=== PATIENT | female | born 1940 | race Caucasian/White ===

== ENCOUNTER 2020-05-07 09:25 | Observation (INO) | payer OTHER ==
[~2020-05-07] VITALS: Ht 160 cm; Wt 59.1 kg
[2020-05-07 09:36] VITALS: BP 156/63
[2020-05-07 10:26] LABS: BASO # 0.1 10*3/uL (0.0-0.1); BASO % 0.9 % (0.0-1.0); EOS # 0.1 10*3/uL (0.0-0.4); EOS % 2.6 % (1.0-4.0); HEMATOCRIT 41.4 % (37.0-47.0); LYMPH # 0.9 10*3/uL (1.3-4.4); LYMPH % 17.4 % (27.0-41.0); MEAN CORPUSCULAR HGB 32.6 pg (27.0-31.0); MEAN CORPUSCULAR HGB CONC 30.4 g/dl (33.0-37.0); MONO # 0.5 10*3/uL (0.1-1.0); MONO % 8.6 % (3.0-9.0); NEUT # 3.8 10*3/uL (2.3-7.9); NEUT % 70.3 % (47.0-73.0); PLATELET COUNT AUTOMATED 262 10*3/uL (130-400); RED BLOOD COUNT 3.87 10*6/uL (4.10-5.10); RED CELL DISTRI WIDTH 16.2 % (0-14.5); WHITE BLOOD COUNT 5.4 10*3/uL (4.8-10.8)
[2020-05-07 10:40] LABS: ACT PARTIAL THROMBO TIME 26.2 SECONDS (20.0-32.1)
[2020-05-07 10:44] LABS: ALBUMIN 3.2 gm/dl (3.1-4.5); CREATININE 5.05 mg/dL (0.55-1.02); POTASSIUM 4.2 mmol/L (3.5-5.1); TOTAL PROTEIN 7.4 gm/dL (6.4-8.2)
[2020-05-07 12:00] VITALS: BP 151/64
--- NOTE | 2020-05-07 12:15 | NUR ---
Time:1214 A 80 year old FEMALE admitted to 5E under services of HAILEY RAMOS DO, Pt. arrived via stretcher from ER. Chief complaint: CONSTIPATION,RECTAL BLEED. CIRO SIMENTAL
[2020-05-07] MEDS ORDERED: COREG6.25 MG PO (13:02)
[2020-05-07] MEDS ORDERED: ELIQUIS5 M1 PO (13:02)
[2020-05-07] MEDS ORDERED: VITAMIN D350 MC1 PO (13:03)
[2020-05-07] MEDS ORDERED: ZETIA10 MG PO (13:03)
[2020-05-07] MEDS ORDERED: COQ-1030 MG PO (13:04)
--- NOTE | 2020-05-07 15:17 | NUR ---
DR. PARKER AWARE OF CONSULT AND DR. RAYO ANSWERING SERVICE TOOK INFO.
[2020-05-07 16:00] VITALS: BP 148/58
[2020-05-07 17:37] LABS: HEMATOCRIT 42.4 % (37.0-47.0); MEAN CELL VOLUME 108.4 fl (81.0-99.0); MEAN CORPUSCULAR HGB CONC 30.4 g/dl (33.0-37.0); MEAN PLATELET VOLUME 9.3 fl (9.6-12.3); PLATELET COUNT AUTOMATED 237 10*3/uL (130-400); RED BLOOD COUNT 3.91 10*6/uL (4.10-5.10); RED CELL DISTRI WIDTH 16.3 % (0-14.5); WHITE BLOOD COUNT 8.5 10*3/uL (4.8-10.8)
[2020-05-07 17:54] LABS: TOTAL CELLS COUNTED 100 #CELLS
[2020-05-07 17:55] LABS: OVALOCYTES FEW; PLATELET SUFFICIENCY NORMAL (NORMAL); POLYCHROMASIA SLIGHT
[2020-05-07 20:00] VITALS: BP 157/53
--- NOTE | 2020-05-07 20:00 | NUR ---
Patient resting quietly with no c/o discomfort. Respirations easy and regular. Vital signs stable. No overt distress. CLARISA PALUMBO
[2020-05-08] VITALS: BP 122/44
--- NOTE | 2020-05-08 | NUR ---
Patient resting quietly with no c/o discomfort. Respirations easy and regular. Vital signs stable. No overt distress. CLARISA PALUMBO
--- NOTE | 2020-05-08 02:51 | NUR ---
ENTIRE/24 HR chart check completed.
--- NOTE | 2020-05-08 04:00 | NUR ---
Patient resting quietly with no c/o discomfort. Respirations easy and regular. Vital signs stable. No overt distress. CLARISA PALUMBO
--- NOTE | 2020-05-08 06:00 | NUR ---
DR DACOSTA NOTIFIED THAT PT NEEDS D/C'S MISAEL TO ATTEND DIALYSIS. WEED CUTTER CALLED IN TO CHECK ON PT'S CONDITION AND REASON FOR ADM.
[2020-05-08 06:47] LABS: BASO % 0.5 % (0.0-1.0); EOS # 0.1 10*3/uL (0.0-0.4); HEMATOCRIT 38.4 % (37.0-47.0); LYMPH # 1.2 10*3/uL (1.3-4.4); LYMPH % 21.7 % (27.0-41.0); MEAN CELL VOLUME 105.5 fl (81.0-99.0); MEAN CORPUSCULAR HGB 33.2 pg (27.0-31.0); MEAN CORPUSCULAR HGB CONC 31.5 g/dl (33.0-37.0); MEAN PLATELET VOLUME 9.4 fl (9.6-12.3); MONO # 0.7 10*3/uL (0.1-1.0); NEUT # 3.5 10*3/uL (2.3-7.9); NEUT % 63.4 % (47.0-73.0); PLATELET COUNT AUTOMATED 266 10*3/uL (130-400); RED BLOOD COUNT 3.64 10*6/uL (4.10-5.10); RED CELL DISTRI WIDTH 16.3 % (0-14.5); WHITE BLOOD COUNT 5.6 10*3/uL (4.8-10.8)
[2020-05-08 06:51] LABS: ALBUMIN 2.9 gm/dl (3.1-4.5); CREATININE 5.56 mg/dL (0.55-1.02); POTASSIUM 4.3 mmol/L (3.5-5.1); TOTAL PROTEIN 6.6 gm/dL (6.4-8.2)
[2020-05-08 06:58] LABS: THYROID STIM HORMONE (HS) 1.95 uIU/ml (0.358-4.75)
[2020-05-08 08:00] VITALS: BP 119/56
--- NOTE | 2020-05-08 08:15 | NUR ---
NOTIFIED REGARING DIET ORDER. OKAY FOR PATIENT TO HAVE RENAL DIET FOR BREAKFAST.
--- NOTE | 2020-05-08 09:10 | NUR ---
IN TO SEE PATIENT REGARDING CONSULT.
--- NOTE | 2020-05-08 09:46 | NUR ---
case management attempted to visit with patient, patient out of room at this time, will see at a later time
--- NOTE | 2020-05-08 11:15 | NUR ---
PATIENT AWARE OF DIALYSIS SCHEDULED FOR TODAY AT [facility]. THIS NURSE SPOKE WITH DIALYSIS NURSE AND IS WAITING FOR PATIENT TO ARRIVE.
--- NOTE | 2020-05-08 11:32 | NUR ---
Discharge instructions reviewed with patient. Patient receptive and verbalizes understanding. Follow-up care arranged. Written instructions given to patient. CANDIS CID
== END 2020-05-08 11:32 | disposition home or self-care (01) ==
LOC: ED 09:25 → 5E 11:13 → EDHOLD 11:13 → 5E 11:26
PROVIDERS: Emergency Medicine; Student in an Organized Health Care Education/Training Program; ADMIT Internal Medicine
DX: K62.5 Hemorrhage of anus and rectum (principal); K59.00 Constipation, unspecified; D72.810 Lymphocytopenia; D75.89 Other specified diseases of blood and blood-forming organs; E11.65 Type 2 diabetes mellitus with hyperglycemia; I25.10 Atherosclerotic heart disease of native coronary artery without angina pectoris; I12.0 Hypertensive chronic kidney disease with stage 5 chronic kidney disease or end stage renal disease; E11.22 Type 2 diabetes mellitus with diabetic chronic kidney disease; N18.6 End stage renal disease; D68.69 Other thrombophilia; I48.91 Unspecified atrial fibrillation

== ENCOUNTER 2020-06-19 11:48 | Emergency (ER) | payer OTHER ==
[~2020-06-19] VITALS: Ht 160 cm; Wt 61.7 kg
[~2020-06-19 11:48] MED LIST: COQ-1030 MG PO; COREG6.25 MG PO; ELIQUIS5 M1 PO; VITAMIN D350 MC1 PO; ZETIA10 MG PO
[2020-06-19 11:55] VITALS: BP 130/70
[2020-06-19 12:50] LABS: BASO % 0.5 % (0.0-1.0); EOS # 0.1 10*3/uL (0.0-0.4); EOS % 1.4 % (1.0-4.0); HEMATOCRIT 29.3 % (37.0-47.0); LYMPH # 1.2 10*3/uL (1.3-4.4); LYMPH % 21.3 % (27.0-41.0); MEAN CELL VOLUME 105.4 fl (81.0-99.0); MEAN CORPUSCULAR HGB 34.5 pg (27.0-31.0); MEAN CORPUSCULAR HGB CONC 32.8 g/dl (33.0-37.0); MEAN PLATELET VOLUME 9.3 fl (9.6-12.3); MONO # 0.6 10*3/uL (0.1-1.0); MONO % 11.1 % (3.0-9.0); NEUT # 3.8 10*3/uL (2.3-7.9); NEUT % 65.5 % (47.0-73.0); PLATELET COUNT AUTOMATED 251 10*3/uL (130-400); RED BLOOD COUNT 2.78 10*6/uL (4.10-5.10); WHITE BLOOD COUNT 5.8 10*3/uL (4.8-10.8)
[2020-06-19 13:03] LABS: ALBUMIN 3.4 gm/dl (3.1-4.5); CREATININE 3.93 mg/dL (0.55-1.02); POTASSIUM 3.9 mmol/L (3.5-5.1); TOTAL PROTEIN 7.3 gm/dL (6.4-8.2)
== END 2020-06-19 16:02 | disposition home or self-care (01) ==
LOC: ED 11:48
PROVIDERS: Nurse Practitioner Family
DX: K59.00 Constipation, unspecified (principal); I25.10 Atherosclerotic heart disease of native coronary artery without angina pectoris; E11.9 Type 2 diabetes mellitus without complications; Z88.0 Allergy status to penicillin; Z88.2 Allergy status to sulfonamides; Z91.013 Allergy to seafood; Z79.899 Other long term (current) drug therapy; Z90.49 Acquired absence of other specified parts of digestive tract; Z95.1 Presence of aortocoronary bypass graft

== ENCOUNTER 2020-10-03 09:48 | Observation (INO) | payer MEDICARE ==
[2020-10-03] VITALS (7 sets, daily range): BP systolic 99–151; BP diastolic 40–65
[~2020-10-03] VITALS: Ht 160 cm; Wt 66.8 kg
[2020-10-03 10:15] LABS: BASO % 0.5 % (0.0-1.0); EOS # 0.1 10*3/uL (0.0-0.4); HEMATOCRIT 36.6 % (37.0-47.0); LYMPH % 34.2 % (27.0-41.0); MEAN CELL VOLUME 105.2 fl (81.0-99.0); MEAN CORPUSCULAR HGB 33.3 pg (27.0-31.0); MEAN CORPUSCULAR HGB CONC 31.7 g/dl (33.0-37.0); MEAN PLATELET VOLUME 9.4 fl (9.6-12.3); MONO # 0.6 10*3/uL (0.1-1.0); MONO % 10.8 % (3.0-9.0); NEUT # 3.1 10*3/uL (2.3-7.9); NEUT % 52.3 % (47.0-73.0); PLATELET COUNT AUTOMATED 244 10*3/uL (130-400); RED BLOOD COUNT 3.48 10*6/uL (4.10-5.10); RED CELL DISTRI WIDTH 14.6 % (0-14.5); WHITE BLOOD COUNT 5.9 10*3/uL (4.8-10.8)
[2020-10-03 10:26] LABS: BILIRUBIN Negative (Negative); BLOOD Negative (Negative); CLARITY Clear (Clear); COLOR Yellow (Yellow); GLUCOSE Negative (Negative); KETONE Negative (Negative); LEUKO ESTERASE 2+ (Negative); NITRITE Negative (Negative); SPECIFIC GRAVITY <= 1.005 (1.001-1.030); UROBILINOGEN 0.2 E.U./dl (0.0-1.0)
[2020-10-03 10:29] LABS: PH >= 9.0 (4.5-8.0)
[2020-10-03 10:34] LABS: BACTERIA 2+
[2020-10-03 10:46] LABS: ALBUMIN 3.1 gm/dl (3.1-4.5); CREATININE 5.53 mg/dL (0.55-1.02); POTASSIUM 4.2 mmol/L (3.5-5.1)
[2020-10-03] MEDS ORDERED: ELIQUIS2.5 M1 PO (11:25)
[2020-10-03] MEDS ORDERED: AMIODARONE HYD200 MG PO (11:26)
[2020-10-03] MEDS ORDERED: HYDR25T PO (11:27)
[2020-10-03] MEDS ORDERED: ALLOPURINOL300 MG PO (11:27)
[2020-10-03] MEDS ORDERED: CARVEDILOL6.25 MG PO (11:27)
[2020-10-03] MEDS ORDERED: COLACE100 MG PO (11:28)
[2020-10-03] MEDS ORDERED: NORCO 5-325 TA1 EACH PO (11:29)
[2020-10-03] MEDS ORDERED: MIRALAX17 GM PO (11:30)
--- NOTE | 2020-10-03 12:35 | NUR ---
DIALYSIS NURSE CALLED IN TO CHECK ON OTHER PTs, NOTIFIED OF THIS PTs ADMISSION AT THIS TIME. SAID THERE WAS NO NEED TO CALL [facility]. SHE WOULD PASS IT ON.
--- NOTE | 2020-10-03 12:42 | NUR ---
A 80, admitted to , under the services of TAMARA Palomo DO with a diagnosis of DIZZINESS, WEAKNESS. Chief complaint is DIZZINESS, HYPOTENSION. Patient arrived via ambulatory from [place]. Monitor applied. Initial assessment completed. Vital signs taken and recorded. TAMARA PALOMO DO notified of admission to the unit. Orders received. See assessment for past medical history, medications and allergies. Patient and/or family oriented to unit. [facility] visitation policy reviewed. Clothing/patient valuable form completed. JEANE GAO
--- NOTE | 2020-10-03 12:44 | NUR ---
CONSULT CALLED TO . AWAITING CALL BACK.
--- NOTE | 2020-10-03 12:59 | NUR ---
MED REC UPDATED VIA LIST FROM HOME.
--- NOTE | 2020-10-03 12:59 | NUR ---
ORHTOSTATIC BP +, ALSO COMPLAINED OF LIGHTHEADEDNESS DURING.
[2020-10-04] VITALS: BP 124/41
[2020-10-04 06:26] LABS: BASO % 0.5 % (0.0-1.0); EOS # 0.2 10*3/uL (0.0-0.4); EOS % 3.1 % (1.0-4.0); HEMATOCRIT 32.7 % (37.0-47.0); LYMPH # 1.8 10*3/uL (1.3-4.4); MEAN CELL VOLUME 107.2 fl (81.0-99.0); MEAN CORPUSCULAR HGB 33.4 pg (27.0-31.0); MEAN CORPUSCULAR HGB CONC 31.2 g/dl (33.0-37.0); MEAN PLATELET VOLUME 9.4 fl (9.6-12.3); MONO # 0.7 10*3/uL (0.1-1.0); MONO % 10.6 % (3.0-9.0); NEUT # 3.4 10*3/uL (2.3-7.9); NEUT % 55.6 % (47.0-73.0); PLATELET COUNT AUTOMATED 217 10*3/uL (130-400); RED BLOOD COUNT 3.05 10*6/uL (4.10-5.10); RED CELL DISTRI WIDTH 14.8 % (0-14.5); WHITE BLOOD COUNT 6.1 10*3/uL (4.8-10.8)
[2020-10-04 06:56] LABS: ALBUMIN 2.7 gm/dl (3.1-4.5); POTASSIUM 4.3 mmol/L (3.5-5.1)
[2020-10-04 07:05] LABS: CREATININE 6.01 mg/dL (0.55-1.02); FREE T4 1.09 ng/dl (0.76-1.46); THYROID STIM HORMONE (HS) 2.31 uIU/ml (0.358-4.75); TOTAL PROTEIN 6.3 gm/dL (6.4-8.2)
[2020-10-04 07:11] LABS: ACT PARTIAL THROMBO TIME 25.6 SECONDS (20.0-32.1)
[2020-10-04 07:20] LABS: VITAMIN D, 25-HYDROXY 38.6 ng/mL (30-100)
--- NOTE | 2020-10-04 08:54 | NUR ---
ORTHOSTATIC BP NEGATIVE THIS AM, SEE ASSESSMENT SCREEN. DENIES ALL COMPLAINTS WHILE CHANGING POSITIONS. CALL LIGHT IN REACH. SITTING UPRIGHT EATING BREAKFAST.
--- NOTE | 2020-10-04 09:04 | NUR ---
IN TO SEE PT.
--- NOTE | 2020-10-04 09:58 | NUR ---
Occupational Therapy evaluation completed on with full evaluation to follow. Recommend occupational therapy per plan of care and home with no skilled needs upon discharge. Thank you for this referral.
--- NOTE | 2020-10-04 10:10 | NUR ---
PHYSICAL THERAPY Physical Therapy evaluation of low complexity (80266) completed. Patient was indpendent with all transfers and ambulation during evaluation. No skilled inpatient PT intervention needs at this time. Discharge PT orders.
[2020-10-04] MEDS ORDERED: CARVEDILOL3.125 MG PO (11:05)
[2020-10-04] MEDS ORDERED: KEFLEX250 MG PO (11:05)
--- NOTE | 2020-10-04 11:22 | NUR ---
PARACHUTE PANEL JOINER-S in to talk to patient. Patient states lives at home with significant other. There are 0 steps in the home. Physician: Dr Gordon [facility]acy: [facility] Home health services: no Patient's level of ADLs: INDEPENDENT Patient has working utilities: yes DME: no Follow-up physician's appointment after d/c: will need scheduled Does patient want to access PORTAL?: no Discharge plan: Patient resides with her significant other Errol Rosa with her daughter Jarrett Page residing nearby. Pt is independent and drives herself to and from dialysis on T, , Sat. Pt states that she has no disharge needs at this time. SAGRARIO BUTTS
[2020-10-04 12:00] VITALS: BP 137/45
--- NOTE | 2020-10-04 15:30 | NUR ---
Discharge instructions reviewed with patient/family. Patient receptive and verbalizes understanding. Follow-up care arranged. Written instructions given to patient/family. JEANE GAO
== END 2020-10-04 15:30 | disposition home or self-care (01) ==
LOC: ED 09:48 → EDHOLD 10:47 → 5E 10:47
PROVIDERS: Social Worker Clinical; Student in an Organized Health Care Education/Training Program; ADMIT Emergency Medicine; ATTEND Emergency Medicine
DX: R42 Dizziness and giddiness (principal); N39.0 Urinary tract infection, site not specified; E83.39 Other disorders of phosphorus metabolism; D53.9 Nutritional anemia, unspecified; R53.1 Weakness; E11.22 Type 2 diabetes mellitus with diabetic chronic kidney disease; I13.2 Hypertensive heart and chronic kidney disease with heart failure and with stage 5 chronic kidney disease, or end stage renal disease; I50.9 Heart failure, unspecified; N18.6 End stage renal disease; I48.91 Unspecified atrial fibrillation; M10.9 Gout, unspecified; R35.0 Frequency of micturition; R82.90 Unspecified abnormal findings in urine; D63.1 Anemia in chronic kidney disease; D68.69 Other thrombophilia; I25.10 Atherosclerotic heart disease of native coronary artery without angina pectoris; Z95.1 Presence of aortocoronary bypass graft; Z87.442 Personal history of urinary calculi; Z98.890 Other specified postprocedural states; Z79.01 Long term (current) use of anticoagulants; Z99.2 Dependence on renal dialysis; Z90.49 Acquired absence of other specified parts of digestive tract; Z87.19 Personal history of other diseases of the digestive system; Z20.828 Contact with and (suspected) exposure to other viral communicable diseases

== ENCOUNTER → 2020-10-26 | Outpatient (CLI) | payer MEDICARE ==
[~2020-10-26] MED LIST changes: +ALLOPURINOL300 MG PO; +AMIODARONE HYD200 MG PO; +CARVEDILOL3.125 MG PO; +CARVEDILOL6.25 MG PO; +COLACE100 MG PO; +ELIQUIS2.5 M1 PO; +HYDR25T PO; +KEFLEX250 MG PO; +MIRALAX17 GM PO; +NORCO 5-325 TA1 EACH PO
== END | disposition home or self-care (01) ==
LOC: RESCLI 00:44
PROVIDERS: ATTEND Student in an Organized Health Care Education/Training Program
DX: E11.22 Type 2 diabetes mellitus with diabetic chronic kidney disease (principal); N18.6 End stage renal disease; I25.10 Atherosclerotic heart disease of native coronary artery without angina pectoris; N20.0 Calculus of kidney; I48.91 Unspecified atrial fibrillation; M10.9 Gout, unspecified; E78.5 Hyperlipidemia, unspecified; Z71.89 Other specified counseling; Z79.899 Other long term (current) drug therapy; Z88.0 Allergy status to penicillin

== ENCOUNTER → 2020-12-03 | Outpatient (CLI) | payer MEDICARE | END | disposition home or self-care (01) | LOC: RESCLI 04:11 | PROVIDERS: ATTEND Family Medicine | DX: I12.0 Hypertensive chronic kidney disease with stage 5 chronic kidney disease or end stage renal disease (principal); E11.22 Type 2 diabetes mellitus with diabetic chronic kidney disease; N18.6 End stage renal disease; I25.10 Atherosclerotic heart disease of native coronary artery without angina pectoris; I48.91 Unspecified atrial fibrillation; M10.9 Gout, unspecified; E78.5 Hyperlipidemia, unspecified; Z79.899 Other long term (current) drug therapy; Z88.0 Allergy status to penicillin; Z88.2 Allergy status to sulfonamides ==

== ENCOUNTER → 2021-02-18 | Outpatient (CLI) | payer MEDICARE | END | disposition home or self-care (01) | LOC: RESCLI 13:59 | PROVIDERS: ATTEND Internal Medicine | DX: N18.6 End stage renal disease (principal); I25.10 Atherosclerotic heart disease of native coronary artery without angina pectoris; N20.0 Calculus of kidney; I48.91 Unspecified atrial fibrillation; M10.9 Gout, unspecified; E78.5 Hyperlipidemia, unspecified; E11.9 Type 2 diabetes mellitus without complications; K21.9 Gastro-esophageal reflux disease without esophagitis; Z99.2 Dependence on renal dialysis; E55.9 Vitamin D deficiency, unspecified; Z79.899 Other long term (current) drug therapy; Z95.1 Presence of aortocoronary bypass graft; Z98.890 Other specified postprocedural states; Z88.0 Allergy status to penicillin; Z88.8 Allergy status to other drugs, medicaments and biological substances ==

== ENCOUNTER 2021-08-08 11:58 | Emergency (ER) | payer MEDICARE ==
[~2021-08-08] VITALS: Ht 160 cm; Wt 71.2 kg
[2021-08-08 16:59] VITALS: BP 136/77
== END 2021-08-08 17:35 | disposition home or self-care (01) ==
LOC: ED 11:58
DX: S52.122A Displaced fracture of head of left radius, initial encounter for closed fracture (principal); S52.121A Displaced fracture of head of right radius, initial encounter for closed fracture; M25.561 Pain in right knee; M25.562 Pain in left knee; Z88.0 Allergy status to penicillin; Z91.013 Allergy to seafood; Z88.2 Allergy status to sulfonamides; Z79.899 Other long term (current) drug therapy; Z79.2 Long term (current) use of antibiotics; Z90.49 Acquired absence of other specified parts of digestive tract; Z98.61 Coronary angioplasty status; W19.XXXA Unspecified fall, initial encounter; Y93.89 Activity, other specified; Y92.89 Other specified places as the place of occurrence of the external cause; Y99.8 Other external cause status

== ENCOUNTER → 2021-08-17 | Outpatient (CLI) | payer MEDICARE | END | disposition home or self-care (01) | LOC: ORTHO 01:02 | PROVIDERS: ATTEND Orthopaedic Surgery | DX: M19.021 Primary osteoarthritis, right elbow (principal) ==

== ENCOUNTER → 2021-10-05 | Outpatient (CLI) | payer MEDICARE | END | disposition home or self-care (01) | LOC: RESCLI 00:37 | PROVIDERS: ATTEND Internal Medicine | DX: I48.91 Unspecified atrial fibrillation (principal); M10.9 Gout, unspecified; E78.5 Hyperlipidemia, unspecified; E11.22 Type 2 diabetes mellitus with diabetic chronic kidney disease; N18.6 End stage renal disease; Z12.31 Encounter for screening mammogram for malignant neoplasm of breast; Z79.899 Other long term (current) drug therapy; Z98.890 Other specified postprocedural states; Z95.1 Presence of aortocoronary bypass graft ==

== ENCOUNTER → 2021-10-10 | Outpatient (CLI) | payer MEDICARE ==
[2021-10-10 11:53] LABS: HEMATOCRIT 41.3 % (37.0-47.0); MEAN CELL VOLUME 110.1 fl (81.0-99.0); MEAN CORPUSCULAR HGB 34.1 pg (27.0-31.0); MEAN PLATELET VOLUME 9.8 fl (9.6-12.3); PLATELET COUNT AUTOMATED 248 10*3/uL (130-400); RED BLOOD COUNT 3.75 10*6/uL (4.10-5.10); RED CELL DISTRI WIDTH 14.5 % (0-14.5); WHITE BLOOD COUNT 5.9 10*3/uL (4.8-10.8)
[2021-10-10 12:32] LABS: BASOPHILS 1 % (0-1); PLATELET SUFFICIENCY NORMAL (NORMAL); TOTAL CELLS COUNTED 100 #CELLS
[2021-10-10 13:18] LABS: VITAMIN D, 25-HYDROXY 28.2 ng/mL (30-100)
== END | disposition home or self-care (01) ==
LOC: RAD 09:30 → LAB 09:47
PROVIDERS: Internal Medicine; ATTEND Internal Medicine Nephrology
DX: Z13.820 Encounter for screening for osteoporosis (principal); E11.22 Type 2 diabetes mellitus with diabetic chronic kidney disease; N18.6 End stage renal disease; E78.5 Hyperlipidemia, unspecified; Z78.0 Asymptomatic menopausal state

== ENCOUNTER → 2021-10-12 | Outpatient (CLI) | payer MEDICARE | END | disposition home or self-care (01) | LOC: ORTHO 00:29 | PROVIDERS: ATTEND Orthopaedic Surgery | DX: S52.124D Nondisplaced fracture of head of right radius, subsequent encounter for closed fracture with routine healing (principal); M25.421 Effusion, right elbow; X58.XXXD Exposure to other specified factors, subsequent encounter ==

== ENCOUNTER → 2022-01-04 | Outpatient (CLI) | payer MEDICARE | END | disposition home or self-care (01) | LOC: RESCLI 00:21 | PROVIDERS: ATTEND Family Medicine | DX: I25.10 Atherosclerotic heart disease of native coronary artery without angina pectoris (principal); E11.9 Type 2 diabetes mellitus without complications; Z79.899 Other long term (current) drug therapy; Z95.1 Presence of aortocoronary bypass graft; I48.91 Unspecified atrial fibrillation; Z90.49 Acquired absence of other specified parts of digestive tract; Z88.0 Allergy status to penicillin; Z88.8 Allergy status to other drugs, medicaments and biological substances ==

== ENCOUNTER 2022-02-20 11:57 | Emergency (ER) | payer MEDICARE ==
[~2022-02-20] VITALS: Ht 157.4 cm; Wt 72.6 kg
[2022-02-20 12:41] LABS: HEMATOCRIT 39.1 % (37.0-47.0); MEAN CELL VOLUME 107.1 fl (81.0-99.0); MEAN CORPUSCULAR HGB 34.5 pg (27.0-31.0); MEAN CORPUSCULAR HGB CONC 32.2 g/dl (33.0-37.0); MEAN PLATELET VOLUME 9.8 fl (9.6-12.3); PLATELET COUNT AUTOMATED 238 10*3/uL (130-400); RED BLOOD COUNT 3.65 10*6/uL (4.10-5.10); RED CELL DISTRI WIDTH 14.4 % (0-14.5); WHITE BLOOD COUNT 10.7 10*3/uL (4.8-10.8)
[2022-02-20 12:49] LABS: MANUAL DIFF REFLEX YES
[2022-02-20 12:56] LABS: ACT PARTIAL THROMBO TIME 25.2 SECONDS (20.0-32.1); INTERNATIONAL NORM RATIO 0.9 (2.0-3.5)
[2022-02-20 12:57] LABS: CREATININE 7.09 mg/dL (0.55-1.02); POTASSIUM 4.7 mmol/L (3.5-5.1); TOTAL PROTEIN 7.3 gm/dL (6.4-8.2)
[2022-02-20 13:01] LABS: ATYPICAL LYMPHS 1 % (0-0); PLATELET SUFFICIENCY NORMAL (NORMAL); POLYCHROMASIA SLIGHT; TOTAL CELLS COUNTED 100 #CELLS
[2022-02-20] MEDS ORDERED: CALCIUM ACETAT667 MG PO (16:17)
[2022-02-20] MEDS ORDERED: ZETIA10 MG PO (16:18)
[2022-02-20 16:20] VITALS: BP 104/51
[2022-02-20] MEDS ORDERED: ZOFRAN4 MG PO (17:11)
== END 2022-02-20 17:41 | disposition home or self-care (01) ==
LOC: ED 11:57
PROVIDERS: Nurse Practitioner Family
DX: R19.7 Diarrhea, unspecified (principal); R07.9 Chest pain, unspecified; E87.70 Fluid overload, unspecified

== ENCOUNTER 2022-03-30 10:38 | Inpatient (IN) | payer MEDICARE ==
[~2022-03-30] VITALS: Ht 157.4 cm; Wt 69.9 kg
[~2022-03-30 10:38] MED LIST changes: +CALCIUM ACETAT667 MG PO; +ZOFRAN4 MG PO
[2022-03-30 10:49] VITALS: BP 151/49
[2022-03-30 11:24] LABS: BASO % 0.5 % (0.0-1.0); EOS # 0.1 10*3/uL (0.0-0.4); EOS % 1.7 % (1.0-4.0); HEMATOCRIT 32.3 % (37.0-47.0); LYMPH # 1.2 10*3/uL (1.3-4.4); LYMPH % 17.7 % (27.0-41.0); MEAN CELL VOLUME 104.5 fl (81.0-99.0); MEAN CORPUSCULAR HGB 34.3 pg (27.0-31.0); MEAN CORPUSCULAR HGB CONC 32.8 g/dl (33.0-37.0); MEAN PLATELET VOLUME 9.2 fl (9.6-12.3); MONO # 0.7 10*3/uL (0.1-1.0); MONO % 10.2 % (3.0-9.0); NEUT # 4.6 10*3/uL (2.3-7.9); NEUT % 69.6 % (47.0-73.0); PLATELET COUNT AUTOMATED 260 10*3/uL (130-400); RED BLOOD COUNT 3.09 10*6/uL (4.10-5.10); RED CELL DISTRI WIDTH 14.4 % (0-14.5); WHITE BLOOD COUNT 6.6 10*3/uL (4.8-10.8)
[2022-03-30 11:36] LABS: ACT PARTIAL THROMBO TIME 27.1 SECONDS (20.0-32.1)
[2022-03-30 11:41] LABS: CREATININE 3.93 mg/dL (0.55-1.02); POTASSIUM 3.3 mmol/L (3.5-5.1); TOTAL PROTEIN 6.7 gm/dL (6.4-8.2)
[2022-03-30 15:49] VITALS: BP 161/70
[2022-03-30 16:13] VITALS: BP 177/55
[2022-03-30 20:00] VITALS: BP 150/59
[2022-03-31] VITALS: BP 127/82; BP 147/43
[2022-03-31 06:30] LABS: BASO % 0.6 % (0.0-1.0); EOS # 0.2 10*3/uL (0.0-0.4); EOS % 2.7 % (1.0-4.0); HEMATOCRIT 29.7 % (37.0-47.0); LYMPH # 1.4 10*3/uL (1.3-4.4); LYMPH % 21.5 % (27.0-41.0); MEAN CELL VOLUME 106.8 fl (81.0-99.0); MEAN CORPUSCULAR HGB 34.9 pg (27.0-31.0); MEAN CORPUSCULAR HGB CONC 32.7 g/dl (33.0-37.0); MEAN PLATELET VOLUME 9.8 fl (9.6-12.3); MONO # 0.8 10*3/uL (0.1-1.0); PLATELET COUNT AUTOMATED 252 10*3/uL (130-400); RED BLOOD COUNT 2.78 10*6/uL (4.10-5.10); RED CELL DISTRI WIDTH 14.4 % (0-14.5); WHITE BLOOD COUNT 6.3 10*3/uL (4.8-10.8)
[2022-03-31 07:07] LABS: CREATININE 4.48 mg/dL (0.55-1.02); POTASSIUM 3.8 mmol/L (3.5-5.1)
[2022-03-31 07:13] LABS: FREE T4 1.43 ng/dl (0.76-1.46); THYROID STIM HORMONE (HS) 1.95 uIU/ml (0.358-4.75); TOTAL PROTEIN 6.1 gm/dL (6.4-8.2)
[2022-03-31 07:54] LABS: VITAMIN D, 25-HYDROXY 46.9 ng/mL (30-100)
[2022-03-31 08:00] VITALS: BP 166/72
[2022-03-31] MEDS ORDERED: BENZONATATE100 M1 PO (09:57)
[2022-03-31 12:00] VITALS: BP 168/63
[2022-03-31 16:00] VITALS: BP 148/54
[2022-03-31 20:00] VITALS: BP 170/51
[2022-04-01] VITALS: BP 169/56
[2022-04-01 06:38] LABS: BASO % 0.5 % (0.0-1.0); EOS # 0.2 10*3/uL (0.0-0.4); EOS % 3.4 % (1.0-4.0); HEMATOCRIT 29.7 % (37.0-47.0); LYMPH # 1.3 10*3/uL (1.3-4.4); LYMPH % 22.1 % (27.0-41.0); MEAN CELL VOLUME 106.8 fl (81.0-99.0); MEAN CORPUSCULAR HGB 34.5 pg (27.0-31.0); MEAN CORPUSCULAR HGB CONC 32.3 g/dl (33.0-37.0); MEAN PLATELET VOLUME 9.3 fl (9.6-12.3); MONO # 0.7 10*3/uL (0.1-1.0); MONO % 12.1 % (3.0-9.0); NEUT # 3.7 10*3/uL (2.3-7.9); NEUT % 61.4 % (47.0-73.0); PLATELET COUNT AUTOMATED 221 10*3/uL (130-400); RED BLOOD COUNT 2.78 10*6/uL (4.10-5.10); RED CELL DISTRI WIDTH 14.5 % (0-14.5)
[2022-04-01 07:12] LABS: CREATININE 4.94 mg/dL (0.55-1.02)
[2022-04-01 08:00] VITALS: BP 153/57
[2022-04-01 12:00] VITALS: BP 132/37
[2022-04-01 16:00] VITALS: BP 158/50
[2022-04-01 20:00] VITALS: BP 153/64
[2022-04-02] VITALS: BP 146/50
[2022-04-02 07:53] LABS: CREATININE 3.81 mg/dL (0.55-1.02); POTASSIUM 3.5 mmol/L (3.5-5.1)
[2022-04-02 08:00] VITALS: BP 150/51
[2022-04-02 12:00] VITALS: BP 156/58
[2022-04-02 16:00] VITALS: BP 146/44
[2022-04-02 20:00] VITALS: BP 114/40
[2022-04-03] VITALS: BP 117/41
[2022-04-03 05:43] LABS: CREATININE 5.71 mg/dL (0.55-1.02); POTASSIUM 3.5 mmol/L (3.5-5.1)
[2022-04-03 08:00] VITALS: BP 159/49
[2022-04-03] MEDS ORDERED: ZOFRAN4 MG PO (08:25)
== END 2022-04-03 11:15 | disposition home or self-care (01) | DRG 291 ==
LOC: ED 10:38 → 5E 13:12 → EDHOLD 13:12 → 5E 15:41
PROVIDERS: Emergency Medicine; Family Medicine; Registered Nurse; Student in an Organized Health Care Education/Training Program; ADMIT Internal Medicine; ATTEND Internal Medicine
DX: I13.2 Hypertensive heart and chronic kidney disease with heart failure and with stage 5 chronic kidney disease, or end stage renal disease (principal); I50.33 Acute on chronic diastolic (congestive) heart failure; N18.6 End stage renal disease; E44.0 Moderate protein-calorie malnutrition; R54 Age-related physical debility; E11.22 Type 2 diabetes mellitus with diabetic chronic kidney disease; E11.65 Type 2 diabetes mellitus with hyperglycemia; I25.10 Atherosclerotic heart disease of native coronary artery without angina pectoris; I48.0 Paroxysmal atrial fibrillation; D53.9 Nutritional anemia, unspecified; Z90.49 Acquired absence of other specified parts of digestive tract; Z88.2 Allergy status to sulfonamides; Z88.0 Allergy status to penicillin; Z99.2 Dependence on renal dialysis; Z91.013 Allergy to seafood; Z79.899 Other long term (current) drug therapy; Z68.28 Body mass index [BMI] 28.0-28.9, adult

== ENCOUNTER 2022-12-25 08:50 | Emergency (ER) | payer MEDICARE ==
[~2022-12-25] VITALS: Ht 157.4 cm; Wt 73.5 kg
[~2022-12-25 08:50] MED LIST changes: +BENZONATATE100 M1 PO
[2022-12-25 08:59] VITALS: BP 183/80
[2022-12-25 10:03] LABS: HEMATOCRIT 33.4 % (37.0-47.0); MEAN CELL VOLUME 108.8 fl (81.0-99.0); MEAN CORPUSCULAR HGB 34.2 pg (27.0-31.0); MEAN CORPUSCULAR HGB CONC 31.4 g/dl (33.0-37.0); MEAN PLATELET VOLUME 9.5 fl (9.6-12.3); PLATELET COUNT AUTOMATED 248 10*3/uL (130-400); RED BLOOD COUNT 3.07 10*6/uL (4.10-5.10); RED CELL DISTRI WIDTH 14.6 % (0-14.5); WHITE BLOOD COUNT 7.5 10*3/uL (4.8-10.8)
[2022-12-25 10:15] LABS: POTASSIUM 3.9 mmol/L (3.4-5.1); TOTAL PROTEIN 6.5 gm/dL (6.0-8.0)
[2022-12-25 10:16] LABS: ACT PARTIAL THROMBO TIME 28.2 SECONDS (20.0-32.1)
[2022-12-25 10:17] LABS: MANUAL DIFF REFLEX YES
[2022-12-25 10:40] LABS: BILIRUBIN Negative (Negative); BLOOD Trace-Intact (Negative); CLARITY Cloudy (Clear); COLOR Yellow (Yellow); GLUCOSE Negative (Negative); KETONE Negative (Negative); LEUKO ESTERASE 3+ (Negative); NITRITE Negative (Negative); UROBILINOGEN 0.2 E.U./dl (0.0-1.0)
[2022-12-25 10:41] LABS: BASOPHILS 2 % (0-1); PLATELET SUFFICIENCY NORMAL (NORMAL); POLYCHROMASIA SLIGHT; TOTAL CELLS COUNTED 100 #CELLS
[2022-12-25 10:44] LABS: PH 8.5 (4.5-8.0)
[2022-12-25 10:51] LABS: BACTERIA 4+; EPITHELIAL CELLS 16-20; WBC TNTC wbc/hpf (0-5)
[2022-12-25] MEDS ORDERED: LEVOFLOXACIN500 MG PO (11:19)
== END 2022-12-25 11:24 | disposition home or self-care (01) ==
LOC: ED 08:50
PROVIDERS: Internal Medicine
DX: R05.9 Cough, unspecified (principal); R30.0 Dysuria; R35.0 Frequency of micturition; I25.10 Atherosclerotic heart disease of native coronary artery without angina pectoris; E11.9 Type 2 diabetes mellitus without complications; Z87.442 Personal history of urinary calculi; Z88.0 Allergy status to penicillin; Z88.2 Allergy status to sulfonamides; Z91.013 Allergy to seafood; Z90.49 Acquired absence of other specified parts of digestive tract; Z98.890 Other specified postprocedural states

== ENCOUNTER 2023-11-09 10:12 | Inpatient (IN) | payer MEDICARE ==
[~2023-11-09] VITALS: Ht 157.4 cm; Wt 70.4 kg
[~2023-11-09 10:12] MED LIST changes: +LEVOFLOXACIN500 MG PO
[2023-11-09 10:19] VITALS: BP 148/72
[2023-11-09 10:58] LABS: HEMATOCRIT 34.4 % (37.0-47.0); MEAN CELL VOLUME 108.5 fl (81.0-99.0); MEAN CORPUSCULAR HGB 34.1 pg (27.0-31.0); MEAN CORPUSCULAR HGB CONC 31.4 g/dl (33.0-37.0); MEAN PLATELET VOLUME 9.6 fl (9.6-12.3); PLATELET COUNT AUTOMATED 225 10*3/uL (130-400); RED BLOOD COUNT 3.17 10*6/uL (4.10-5.10); RED CELL DISTRI WIDTH 14.2 % (0-14.5); WHITE BLOOD COUNT 6.9 10*3/uL (4.8-10.8)
[2023-11-09 11:08] LABS: MANUAL DIFF REFLEX YES
[2023-11-09 11:19] LABS: ACT PARTIAL THROMBO TIME 31.5 SECONDS (20.0-32.1)
[2023-11-09 11:22] LABS: POTASSIUM 4.6 mmol/L (3.4-5.1); TOTAL PROTEIN 7.1 gm/dL (6.0-8.0)
[2023-11-09 11:31] LABS: PLATELET SUFFICIENCY NORMAL (NORMAL); POLYCHROMASIA SLIGHT; TOTAL CELLS COUNTED 100 #CELLS
[2023-11-09 19:07] VITALS: BP 117/78
[2023-11-09 21:13] VITALS: BP 166/59
[2023-11-10] VITALS: BP 144/68
[2023-11-10 07:28] LABS: BASO % 0.5 % (0.0-1.0); EOS % 0.2 % (1.0-4.0); HEMATOCRIT 32.8 % (37.0-47.0); LYMPH % 16.5 % (27.0-41.0); MEAN CELL VOLUME 107.9 fl (81.0-99.0); MEAN CORPUSCULAR HGB 34.5 pg (27.0-31.0); MEAN PLATELET VOLUME 9.6 fl (9.6-12.3); MONO # 1.2 10*3/uL (0.1-1.0); MONO % 18.4 % (3.0-9.0); NEUT % 64.1 % (47.0-73.0); PLATELET COUNT AUTOMATED 205 10*3/uL (130-400); RED BLOOD COUNT 3.04 10*6/uL (4.10-5.10); RED CELL DISTRI WIDTH 14.3 % (0-14.5); WHITE BLOOD COUNT 6.2 10*3/uL (4.8-10.8)
[2023-11-10 07:47] LABS: POTASSIUM 4.5 mmol/L (3.4-5.1); TOTAL PROTEIN 6.7 gm/dL (6.0-8.0)
[2023-11-10 08:12] VITALS: BP 132/50
[2023-11-10 12:00] VITALS: BP 129/50
[2023-11-10 16:00] VITALS: BP 131/53
[2023-11-10 22:30] VITALS: BP 152/69
[2023-11-11] VITALS: BP 126/52
[2023-11-11 07:55] LABS: BASO % 0.5 % (0.0-1.0); EOS % 0.5 % (1.0-4.0); HEMATOCRIT 33.6 % (37.0-47.0); LYMPH # 0.7 10*3/uL (1.3-4.4); LYMPH % 12.6 % (27.0-41.0); MEAN CELL VOLUME 106.7 fl (81.0-99.0); MEAN CORPUSCULAR HGB 34.3 pg (27.0-31.0); MEAN CORPUSCULAR HGB CONC 32.1 g/dl (33.0-37.0); MEAN PLATELET VOLUME 9.7 fl (9.6-12.3); MONO % 18.1 % (3.0-9.0); NEUT # 3.8 10*3/uL (2.3-7.9); NEUT % 68.1 % (47.0-73.0); PLATELET COUNT AUTOMATED 190 10*3/uL (130-400); RED BLOOD COUNT 3.15 10*6/uL (4.10-5.10); RED CELL DISTRI WIDTH 13.7 % (0-14.5); WHITE BLOOD COUNT 5.6 10*3/uL (4.8-10.8)
[2023-11-11 08:00] VITALS: BP 145/65
[2023-11-11 08:25] LABS: POTASSIUM 3.6 mmol/L (3.4-5.1)
[2023-11-11 12:00] VITALS: BP 124/41
[2023-11-11 16:00] VITALS: BP 112/40
[2023-11-11 20:00] VITALS: BP 144/52
[2023-11-12] VITALS: BP 117/59
[2023-11-12 05:52] LABS: POTASSIUM 3.6 mmol/L (3.4-5.1)
[2023-11-12 06:34] LABS: BASO % 0.4 % (0.0-1.0); EOS # 0.1 10*3/uL (0.0-0.4); EOS % 0.8 % (1.0-4.0); HEMATOCRIT 30.5 % (37.0-47.0); LYMPH # 1.2 10*3/uL (1.3-4.4); LYMPH % 17.1 % (27.0-41.0); MEAN CELL VOLUME 105.9 fl (81.0-99.0); MEAN CORPUSCULAR HGB 34.7 pg (27.0-31.0); MEAN CORPUSCULAR HGB CONC 32.8 g/dl (33.0-37.0); MEAN PLATELET VOLUME 9.9 fl (9.6-12.3); MONO % 14.2 % (3.0-9.0); NEUT # 4.9 10*3/uL (2.3-7.9); NEUT % 66.9 % (47.0-73.0); PLATELET COUNT AUTOMATED 192 10*3/uL (130-400); RED BLOOD COUNT 2.88 10*6/uL (4.10-5.10); RED CELL DISTRI WIDTH 13.7 % (0-14.5); WHITE BLOOD COUNT 7.3 10*3/uL (4.8-10.8)
[2023-11-12 08:00] VITALS: BP 146/54
[2023-11-12] MEDS ORDERED: BENZONATATE100 M1 PO (10:53)
[2023-11-12] MEDS ORDERED: TAMIFLU30 MG PO (10:53)
[2023-11-12 12:00] VITALS: BP 112/53
== END 2023-11-12 14:40 | disposition home or self-care (01) | DRG 193 ==
LOC: ED 10:12 → EDHOLD 12:12 → 5E 12:12
PROVIDERS: Emergency Medicine; Student in an Organized Health Care Education/Training Program; ADMIT Internal Medicine; ATTEND Internal Medicine
PROC: 5A1D70Z Performance of Urinary Filtration, Intermittent, Less than 6 Hours Per Day (ICD-10-PCS; principal; 2023-11-10)
DX: J10.1 Influenza due to other identified influenza virus with other respiratory manifestations (principal); I50.33 Acute on chronic diastolic (congestive) heart failure; N18.6 End stage renal disease; I13.2 Hypertensive heart and chronic kidney disease with heart failure and with stage 5 chronic kidney disease, or end stage renal disease; E87.1 Hypo-osmolality and hyponatremia; D68.69 Other thrombophilia; D53.9 Nutritional anemia, unspecified; I48.91 Unspecified atrial fibrillation; M10.9 Gout, unspecified; E11.65 Type 2 diabetes mellitus with hyperglycemia; I34.0 Nonrheumatic mitral (valve) insufficiency; I07.1 Rheumatic tricuspid insufficiency; I25.10 Atherosclerotic heart disease of native coronary artery without angina pectoris; E11.22 Type 2 diabetes mellitus with diabetic chronic kidney disease; Z90.49 Acquired absence of other specified parts of digestive tract; Z90.5 Acquired absence of kidney; Z88.0 Allergy status to penicillin; Z88.2 Allergy status to sulfonamides; Z91.013 Allergy to seafood

== ENCOUNTER → 2024-01-16 | Outpatient (CLI) | payer MEDICARE ==
[~2024-01-16] MED LIST changes: +TAMIFLU30 MG PO
== END | disposition home or self-care (01) ==
LOC: RAD 11:05
PROVIDERS: ATTEND Urology
DX: N18.5 Chronic kidney disease, stage 5 (principal); N20.0 Calculus of kidney; I70.8 Atherosclerosis of other arteries; M16.0 Bilateral primary osteoarthritis of hip; M47.816 Spondylosis without myelopathy or radiculopathy, lumbar region; Z99.2 Dependence on renal dialysis

== ENCOUNTER 2024-02-28 12:44 | Emergency (ER) | payer MEDICARE ==
[~2024-02-28] VITALS: Ht 157.4 cm; Wt 69.9 kg
[2024-02-28 12:49] VITALS: BP 119/68
[2024-02-28] MEDS ORDERED: PREDNISONE10 MG PO (12:54)
[2024-02-28 13:14] LABS: BASO % 0.1 % (0.0-1.0); HEMATOCRIT 42.8 % (37.0-47.0); LYMPH # 0.9 10*3/uL (1.3-4.4); LYMPH % 8.7 % (27.0-41.0); MEAN CELL VOLUME 105.2 fl (81.0-99.0); MEAN CORPUSCULAR HGB 34.2 pg (27.0-31.0); MEAN CORPUSCULAR HGB CONC 32.5 g/dl (33.0-37.0); MEAN PLATELET VOLUME 10.7 fl (9.6-12.3); MONO # 0.4 10*3/uL (0.1-1.0); MONO % 3.4 % (3.0-9.0); NEUT # 9.4 10*3/uL (2.3-7.9); NEUT % 87.2 % (47.0-73.0); NUCLEATED RED BLOOD CELL 0.1 10*3/uL (0.0-0.0); NUCLEATED RED BLOOD CELL 0.6 % (0.0-0.0); PLATELET COUNT AUTOMATED 223 10*3/uL (130-400); RED BLOOD COUNT 4.07 10*6/uL (4.10-5.10); RED CELL DISTRI WIDTH 15.4 % (0-14.5); WHITE BLOOD COUNT 10.8 10*3/uL (4.8-10.8)
[2024-02-28 13:33] LABS: POTASSIUM 5.1 mmol/L (3.4-5.1); TOTAL PROTEIN 6.2 gm/dL (6.0-8.0)
[2024-02-28] MEDS ORDERED: INSULIN REGULAR, HUMAN 1 UNIT/0.01 ML IV ONE (14:20)
[2024-02-28] MEDS ORDERED: hydrOXYzine pamoate 25 MG CAP PO ONE (14:20)
[2024-02-28] MEDS ORDERED: SODIUM CHLORIDE 0.9% 1,000 ML IV ONE (14:20)
[2024-02-28] MEDS ORDERED: VISTARIL25 MG PO (15:41)
== END 2024-02-28 16:16 | disposition home or self-care (01) ==
LOC: ED 12:44
PROVIDERS: Nurse Practitioner
DX: L29.9 Pruritus, unspecified (principal); I25.10 Atherosclerotic heart disease of native coronary artery without angina pectoris; E11.9 Type 2 diabetes mellitus without complications; Z87.442 Personal history of urinary calculi; Z88.0 Allergy status to penicillin; Z91.013 Allergy to seafood; Z88.2 Allergy status to sulfonamides; Z90.49 Acquired absence of other specified parts of digestive tract; Z98.890 Other specified postprocedural states

== ENCOUNTER 2024-03-01 05:58 | Emergency (ER) | payer MEDICARE ==
[~2024-03-01] VITALS: Ht 157.4 cm; Wt 73.3 kg
[~2024-03-01 05:58] MED LIST changes: +PREDNISONE10 MG PO; +VISTARIL25 MG PO
[2024-03-01 06:06] VITALS: BP 135/49
[2024-03-01] MEDS ORDERED: PROAIR RESPICL90 MCG INH (06:10)
[2024-03-01] MEDS ORDERED: BILBERRY EXTRAC80 MG PO (06:12)
[2024-03-01] MEDS ORDERED: VITAMIN D350 MC4 PO (06:13)
[2024-03-01] MEDS ORDERED: CARVEDILOL3.125 MG PO (06:13)
[2024-03-01] MEDS ORDERED: COENZYME Q10100 M2 PO (06:17)
[2024-03-01] MEDS ORDERED: ESTRACE 0.01%42.5 GM V (06:20)
[2024-03-01] MEDS ORDERED: AURYXIA210 MG PO (06:21)
[2024-03-01] MEDS ORDERED: TOPCARE ALLERGY10 MG PO (06:22)
== END 2024-03-01 07:28 | disposition home or self-care (01) ==
LOC: ED 05:58
DX: S80.02XA Contusion of left knee, initial encounter (principal); S80.01XA Contusion of right knee, initial encounter; I25.10 Atherosclerotic heart disease of native coronary artery without angina pectoris; E11.9 Type 2 diabetes mellitus without complications; Z87.442 Personal history of urinary calculi; Z88.0 Allergy status to penicillin; Z91.013 Allergy to seafood; Z88.2 Allergy status to sulfonamides; Z90.49 Acquired absence of other specified parts of digestive tract; Z98.890 Other specified postprocedural states; W01.10XA Fall on same level from slipping, tripping and stumbling with subsequent striking against unspecified object, initial encounter; Y93.89 Activity, other specified; Y92.89 Other specified places as the place of occurrence of the external cause; Y99.8 Other external cause status

== ENCOUNTER 2024-07-23 19:15 | Emergency (ER) | payer MEDICARE ==
[~2024-07-23] VITALS: Ht 157.4 cm; Wt 58.1 kg
[~2024-07-23 19:15] MED LIST changes: +AURYXIA210 MG PO; +BILBERRY EXTRAC80 MG PO; +COENZYME Q10100 M2 PO; +ESTRACE 0.01%42.5 GM V; +PROAIR RESPICL90 MCG INH; +TOPCARE ALLERGY10 MG PO; +VITAMIN D350 MC4 PO
[2024-07-23] MEDS ORDERED: Tdap Vaccine 0.5 ML SYR (Adult Vaccine) IM ONE (19:30)
[2024-07-23] MEDS ORDERED: Bacitracin Zinc 14 GM TUBE T ONE (19:30)
[2024-07-23] MEDS ORDERED: MUCINEX ER600 MG PO (19:46)
[2024-07-23] MEDS ORDERED: TOPROL XL25 MG PO (19:46)
[2024-07-23] MEDS ORDERED: B-1100 M1 PO (19:47)
[2024-07-23] MEDS ORDERED: RENAL VITAMIN0.8 MG PO (19:50)
[2024-07-24 13:10] VITALS: BP 133/76
== END 2024-07-24 17:04 ==
LOC: ED 19:15
DX: S42.474A Nondisplaced transcondylar fracture of right humerus, initial encounter for closed fracture (principal); S51.011A Laceration without foreign body of right elbow, initial encounter; S00.83XA Contusion of other part of head, initial encounter; I48.91 Unspecified atrial fibrillation; I25.10 Atherosclerotic heart disease of native coronary artery without angina pectoris; E11.65 Type 2 diabetes mellitus with hyperglycemia; M10.9 Gout, unspecified; E11.22 Type 2 diabetes mellitus with diabetic chronic kidney disease; I13.2 Hypertensive heart and chronic kidney disease with heart failure and with stage 5 chronic kidney disease, or end stage renal disease; I50.9 Heart failure, unspecified; N18.6 End stage renal disease; Z88.0 Allergy status to penicillin; Z88.2 Allergy status to sulfonamides; Z91.013 Allergy to seafood; Z99.2 Dependence on renal dialysis; Z90.49 Acquired absence of other specified parts of digestive tract; Z98.890 Other specified postprocedural states; W01.198A Fall on same level from slipping, tripping and stumbling with subsequent striking against other object, initial encounter; Y93.89 Activity, other specified; Y92.89 Other specified places as the place of occurrence of the external cause; Y99.8 Other external cause status

== ENCOUNTER → 2024-08-13 | Outpatient (CLI) | payer MEDICARE ==
[~2024-08-13] MED LIST changes: +B-1100 M1 PO; +MUCINEX ER600 MG PO; +RENAL VITAMIN0.8 MG PO; +TOPROL XL25 MG PO
== END | disposition home or self-care (01) ==
LOC: ORTHO 03:03
PROVIDERS: ATTEND Orthopaedic Surgery
DX: S42.401D Unspecified fracture of lower end of right humerus, subsequent encounter for fracture with routine healing (principal); X58.XXXD Exposure to other specified factors, subsequent encounter

== ENCOUNTER → 2024-09-15 | Outpatient (CLI) | payer MEDICARE | END | disposition home or self-care (01) | LOC: ORTHO 09-12 01:31 | PROVIDERS: ATTEND Orthopaedic Surgery | DX: S42.401D Unspecified fracture of lower end of right humerus, subsequent encounter for fracture with routine healing (principal); X58.XXXD Exposure to other specified factors, subsequent encounter ==

== ENCOUNTER 2024-12-25 12:18 | Emergency (ER) | payer MEDICARE ==
[~2024-12-25] VITALS: Ht 162.5 cm; Wt 56.7 kg
[2024-12-25 12:48] LABS: HEMATOCRIT 44.5 % (37.0-47.0); MEAN CELL VOLUME 98.9 fl (81.0-99.0); MEAN CORPUSCULAR HGB 33.6 pg (27.0-31.0); MEAN CORPUSCULAR HGB CONC 33.9 g/dl (33.0-37.0); MEAN PLATELET VOLUME 10.6 fl (9.6-12.3); NUCLEATED RED BLOOD CELL 0.1 10*3/uL (0.0-0.0); NUCLEATED RED BLOOD CELL 2.2 % (0.0-0.0); PLATELET COUNT AUTOMATED 152 10*3/uL (130-400); RED CELL DISTRI WIDTH 20.4 % (0-14.5); WHITE BLOOD COUNT 5.6 10*3/uL (4.8-10.8)
[2024-12-25 12:52] LABS: MANUAL DIFF REFLEX YES
[2024-12-25 13:01] LABS: POTASSIUM 4.8 mmol/L (3.4-5.1)
[2024-12-25 13:22] LABS: ATYPICAL LYMPHS 1 % (0-0); BASOPHILS 3 % (0-1); TOTAL CELLS COUNTED 100 #CELLS
[2024-12-25 13:23] LABS: PLATELET SUFFICIENCY NORMAL (NORMAL); POLYCHROMASIA SLIGHT
[2024-12-25 13:36] VITALS: BP 115/56
[2024-12-25] MEDS ORDERED: Acetaminophen/Oxycodone 5 MG/325 MG TABLET PO ONE (15:15)
== END 2024-12-25 16:49 | disposition home or self-care (01) ==
LOC: ED 12:18
PROVIDERS: Internal Medicine
DX: S01.01XA Laceration without foreign body of scalp, initial encounter (principal); S81.011A Laceration without foreign body, right knee, initial encounter; S61.411A Laceration without foreign body of right hand, initial encounter; Z88.0 Allergy status to penicillin; Z91.030 Bee allergy status; Z88.2 Allergy status to sulfonamides; Z79.899 Other long term (current) drug therapy; Z90.49 Acquired absence of other specified parts of digestive tract; Z87.442 Personal history of urinary calculi; W06.XXXA Fall from bed, initial encounter; Y93.89 Activity, other specified; Y92.89 Other specified places as the place of occurrence of the external cause; Y99.8 Other external cause status

== ENCOUNTER 2025-01-13 14:17 | Inpatient (IN) | payer OTHER, MEDICARE ==
[~2025-01-13] VITALS: Ht 157.5 cm; Wt 59.9 kg
[~2025-01-13 14:17] MED LIST changes: +ALLOPURINOL100 MG PO; +HYDROXYZINE HCL25 MG PO; +METHIMAZOLE5 M1 PO; +RENVELA800 MG PO; +TOPROL XL50 M1 PO
[2025-01-13 14:25] VITALS: BP 68/36
[2025-01-13] MEDS ORDERED: MORPHINE Sulfate 50 MG in SODIUM CHLORIDE 0.9% 45 ML IV SCH (14:45)
[2025-01-13 20:00] VITALS: BP 65/30
== END 2025-01-14 05:12 | DRG 291 ==
LOC: 4E 14:17
PROVIDERS: ADMIT Internal Medicine; ATTEND Internal Medicine
DX: I13.2 Hypertensive heart and chronic kidney disease with heart failure and with stage 5 chronic kidney disease, or end stage renal disease (principal); G93.41 Metabolic encephalopathy; J18.9 Pneumonia, unspecified organism; N18.6 End stage renal disease; J96.20 Acute and chronic respiratory failure, unspecified whether with hypoxia or hypercapnia; I50.31 Acute diastolic (congestive) heart failure; K80.00 Calculus of gallbladder with acute cholecystitis without obstruction; I48.21 Permanent atrial fibrillation; E87.20 Acidosis, unspecified; I25.10 Atherosclerotic heart disease of native coronary artery without angina pectoris; E11.22 Type 2 diabetes mellitus with diabetic chronic kidney disease; E78.5 Hyperlipidemia, unspecified; M1A.9XX0 Chronic gout, unspecified, without tophus (tophi); F41.1 Generalized anxiety disorder; E80.6 Other disorders of bilirubin metabolism; R74.8 Abnormal levels of other serum enzymes; E11.65 Type 2 diabetes mellitus with hyperglycemia; Z90.49 Acquired absence of other specified parts of digestive tract; Z82.49 Family history of ischemic heart disease and other diseases of the circulatory system; Z82.3 Family history of stroke; Z88.0 Allergy status to penicillin; Z88.2 Allergy status to sulfonamides; Z91.013 Allergy to seafood; Z79.899 Other long term (current) drug therapy; Z99.2 Dependence on renal dialysis